=== PATIENT | female | born 2000 | race Two or more races ===

== ENCOUNTER 2020-12-21 03:03 | Emergency (ER) | payer MEDICAID, OTHER ==
[~2020-12-21] VITALS: Ht 162.6 cm; Wt 63.3 kg
[~2020-12-21 03:03] MED LIST: ONDA4TAB12 PO
[2020-12-21 03:04] VITALS: BP 142/68
[2020-12-21] MEDS ORDERED: bacitracin 15gm ointment TP ONE (03:10)
[2020-12-21] MEDS ORDERED: acetaminophen 325mg tablet PO ONE (03:10)
[2020-12-21] MEDS ORDERED: fentaNYL/PF 50MCG/1 ML 2ML syringe IV ONE (05:00)
== END 2020-12-21 05:10 ==
LOC: ER 03:03
DX: S06.0X0A Concussion without loss of consciousness, initial encounter (principal); S40.011A Contusion of right shoulder, initial encounter; F10.129 Alcohol abuse with intoxication, unspecified; F12.90 Cannabis use, unspecified, uncomplicated; Z72.89 Other problems related to lifestyle; Z98.890 Other specified postprocedural states; Z79.899 Other long term (current) drug therapy; Y04.0XXA Assault by unarmed brawl or fight, initial encounter; Y93.89 Activity, other specified; Y92.89 Other specified places as the place of occurrence of the external cause; Y99.8 Other external cause status
CPT/HCPCS: 70450; 70486; 72125; 73030; 99285

== ENCOUNTER 2025-03-07 09:38 | Outpatient (CLI) | payer MEDICAID ==
[~2025-03-07 09:38] MED LIST changes: +ONDA-243 PO; -ONDA4TAB12 PO
--- NOTE | 2025-03-07 11:48 | RADIOLOGY REPORT ---
MRI Abdomen, without and with IV Contrast Exam Date: 03/07/2025 10:06 AM Comparison: None History: RIGHT UPPER QUADRANT PAIN Technique: Multisequence multiplanar MRI images were obtained of the abomen. Images were obtained without and with intravenous contrast. Findings: Liver: Hepatic steatosis. Borderline hepatomegaly, 16.3 cm craniocaudal. Spleen: Unremarkable. Pancreas: The pancreas is normal in appearance without focal lesions. Gallbladder and ducts: Gallbladder is surgically absent. The cystic duct, right and left hepatic ducts, common hepatic duct, and common bile ducts are unremarkable. The pancreatic duct is within normal limits. Adrenal glands: Unremarkable. Kidneys: Normal enhancement without suspicious lesions or hydronephrosis. Visualized bowel: Grossly unremarkable. Vasculature: Unremarkable. Lymphadenopathy: No evidence for lymphadenopathy. Ascites: Absent. Musculoskeletal: Bone marrow signal is normal. IMPRESSION: 1. Hepatic steatosis. 2. Status post cholecystectomy. 3. No biliary ductal dilatation.
[2025-03-07] MEDS ORDERED: GADOTERATE MEGLUMINE 7.5 MMOL/15 ML VIAL IV ONE (12:12)
== END 2025-03-07 23:59 | disposition home or self-care (01) ==
LOC: MRI 09:38
PROVIDERS: ATTEND Nurse Practitioner
DX: K76.0 Fatty (change of) liver, not elsewhere classified (principal); R10.11 Right upper quadrant pain; Z90.49 Acquired absence of other specified parts of digestive tract
CPT/HCPCS: 74183; A9575